=== PATIENT | female | born 1940 | race Caucasian/White ===

== ENCOUNTER 2019-11-14 06:36 | Day surgery (SDC) | payer MEDICARE, BC ==
[~2019-11-14] VITALS: Ht 157.5 cm; Wt 72.7 kg
--- NOTE | ~2019-11-14 | OP ---
PATIENT NAME: PAULINE OBANDO MEDICAL RECORD: [id number] :40 LOCATION:D.OPS ADMISSION DATE: SURGEON: JAQUELIN RAYMOND MD DATE OF OPERATION: 11/14/2019 PROCEDURE: Colonoscopy with polypectomy. CORRECTIONAL CAPTAIN: Jaquelin Raymond MD SCOPE: An Olympus video colonoscope. MEDICATIONS: Per TIVA anesthesia. The patient received 200 mg of propofol for this procedure. ASA III, O2 4 liters. HISTORY AND PHYSICAL: Ms. Obando is a very pleasant 79-year-old lady who was referred by her primary care physician, Dr. Jesús Osborne for a colonoscopy. The patient has had guaiac positive stools and at the time of her clinic visit 06/17/2019, she also was having some left-sided abdominal pain, which at that time was intermittent, but today has resolved. She has seen some bright red blood per rectum on one occasion. Her last colonoscopy procedure was 03/28/2016, which was significant for moderate diverticulosis of the whole colon, stage I internal hemorrhoids. A 1 cm polyp in the rectal pouch, which was biopsied. The IC valve was identified during this procedure. The polyp was hyperplastic. The patient will have a colonoscopy this date. Of note, her family history is negative for colon cancer. FINDINGS AND DESCRIPTION OF PROCEDURE: Informed consent was given. The patient was made comfortable with the above medications. After reaching an adequate level of sedation by slow IV push, the patient was placed on her left side. The rectal exam revealed good sphincter tone. No fissures or fistulas were appreciated. No external skin tags were seen. The colonoscope was advanced to the cecum where the ileocecal valve and appendiceal orifice were identified and were felt to be normal. On withdrawal of the scope, mucosa was carefully inspected. The patient had iedf-cl-dimadbup diverticulosis without any signs of diverticulitis and it was observed that most of the diverticula were on the left side of the colon and varied in size. The patient had normal mucosa throughout the colon. In the rectum, a 0.5 cm polyp was seen and removed with hot biopsy forceps technique. On retroflexion, very mild internal hemorrhoids were appreciated and on final withdrawal of the scope, no hemorrhoids were observed. IMPRESSION: 1. Cecum and IC valve identified. Mucosa was felt to be fairly normal throughout. 2. Moderate left-sided diverticulosis without diverticulitis, most of the diverticula are on the left side of the colon. 3. Very mild internal hemorrhoids, stage I, grade I. 4. A 0.5 cm polyp removed with hot biopsy forcep technique. PLAN: 1. If the patient's anemia persists, she will require an EGD for further evaluation. 2. High fiber diet. 3. Diverticular diet, avoid nuts, seeds and popcorn. Return to clinic on a OPERATIVE REPORT [id number] PAULINE OBANDO p.r.n. basis. This should be the patient's last colonoscopy due to age-related risk as she is 79 years old. TRANSINT:[id number] Voice Confirmation ID: [id number] DOCUMENT ID: [id number] JAQUELIN RAYMOND MD CC: KATJA BALTAZAR MD and JESÚS OSBORNE MD [id number] DICTATION DATE: 11/14/19 0938 TOUR GUIDE: 11/14/19 1052 [facility] 11/14/19 [facility] [address] [place] [address]
[2019-11-14 07:01] LABS: ANION GAP 11.7 mmol/L (8-16); CALCIUM 9.1 mg/dL (8.5-10.1); CARBON DIOXIDE 24.6 mmol/L (21.0-32.0); CREATININE - SERUM 0.9 mg/dL (0.6-1.3); POTASSIUM - SERUM 4.3 mmol/L (3.5-5.1)
[2019-11-14 07:19] LABS: APTT 28.7 SECONDS (22.8-39.4); INR 1.03 (0.85-1.17); PROTIME 13.5 SECONDS (11.6-15.0)
[2019-11-14] MEDS ORDERED: GLIMEPIRIDE4 MG PO (07:22)
[2019-11-14] MEDS ORDERED: LEVOXYL50 MCG PO (07:22)
[2019-11-14] MEDS ORDERED: ISOSORBIDE DINI30 MG (07:23)
[2019-11-14] MEDS ORDERED: COZAAR50 MG PO (07:23)
[2019-11-14 07:24] LABS: HEMATOCRIT 34.8 % (36.0-48.0); HEMOGLOBIN 11.9 g/dL (12-16); MCH 29.8 pg (26.0-34.0); MCHC 34.2 g/dL (31.0-37.0); MCV 87.2 fL (80.0-100.0); MEAN PLATELET VOLUME 8.4 fL (7.4-10.4); RBC 3.99 10x6/uL (4.00-5.40); RDW 13.3 % (11.5-14.5)
[2019-11-14] MEDS ORDERED: HUMALOG MIX 75/23 ML SC (07:24)
[2019-11-14] MEDS ORDERED: TOUJEO SOL300 UNIT/1 (07:25)
[2019-11-14] MEDS ORDERED: BAYER CHEWABLE81 MG PO (07:26)
[2019-11-14 07:58] VITALS: BP 122/59; Ht 157.5 cm; Wt 72.7 kg
--- NOTE | 2019-11-14 09:56 | NUR ---
0952 CALLED PT'S DAUGHTER,ISA, WITH AN UPDATE.
--- NOTE | 2019-11-14 10:36 | NUR ---
1015 BP IS ELEVATED FROM PREPROCEDURE VALUES. PT STATES SHE HAS NOT HAD HER BP MEDICINES SINCE YESTERDAY MORNING AND WOULD LIKE TO TAKE HER MEDS THAT SHE BROUGHT WITH HER. 1018 PT SELF MEDICATED WITH LOSARTAN AND ISOSORBIDE. 1022 IV DC'D. CATHETER TIP INTACT. NO BLEEDING AT SITE. BANDAID APPLIED. PT VOICES UNDERSTANDING OF DISCHARGE INSTRUCTIONS.
== END 2019-11-14 10:30 | disposition home or self-care (01) ==
LOC: D.OPS 06:36
PROVIDERS: Anesthesiology; ATTEND Internal Medicine Gastroenterology
DX: R19.5 Other fecal abnormalities (principal); R10.9 Unspecified abdominal pain; Z87.19 Personal history of other diseases of the digestive system; K62.1 Rectal polyp; E11.9 Type 2 diabetes mellitus without complications; Z79.4 Long term (current) use of insulin